=== PATIENT | male | born 1955 | race Asian ===

== ENCOUNTER 2023-11-18 12:56 | Emergency (ER) | payer BC, SELFPAY ==
[2023-11-18] VITALS (15 sets, daily range): BP systolic 102–143; BP diastolic 60–99
--- NOTE | 2023-11-18 13:11 | ED.GENMED ---
History of Present Illness
General
Chief Complaint: Heart Rate Problem
Source: patient
Time Seen by Provider: 11/18/23 13:11
Travel History
Have you had any contact with someone who has COVID-19?: No
Do you have any symptoms of coronavirus? Fever > 100 degrees, chills, cough, shortness of breath, sore throat, loss of taste or smell, muscle aches, or headache?: No
History of Present Illness
History of Present Illness:
68-year-old gentleman brought to the emergency room by ambulance due to rapid heartbeat. Patient has a history of paroxysmal atrial fibrillation. He does take Xarelto and metoprolol. Patient noticed his heart rate was fast a couple days ago when
he has palpitations and checked his heart rate on his Apple Watch. He is checked it several times since then and has seemed to get normal at times and then be rapid at times. This morning he checked it again and it was quite rapid prompting him to
go to an urgent care. Urgent care called 911. Paramedics arrived and noted him to have a very rapid heart rate which they interpreted to be SVT. He was given 2 doses of adenosine 6, 12 mg. His heart rate was slow but that would speed right back
up after a few seconds. Patient denies any fever, chills, cough, shortness of breath.
Phy Exam
Physical Exam
Physical Exam:
General: Awake, Alert, Oriented X3. No acute distress.
Vitals: Tachycardic
Head: Atraumatic
Eyes: Pupils equal, EOMI
Throat: Airway intact, no exudates
Neck: Trachea midline
Lungs: Clear and equal b/l
Heart: Tachycardic regular rate, no murmurs
Abd: Soft, Nontender, No pulsatile mass
Neuro: Nonfocal
Skin: Warm, dry, no rash
Extremities: pulses equal b/l, no edema
Course
Orders/Labs/Results
Orders:
Orders
11/18/23
Electrocardiogram (*1) Stat
Other Reason for Exam: CP
Comment: DONE
11/18/23 13:01
Electrocardiogram (*1) Urgent
Reason for Study: Chest Pain
Cardiac Monitoring- Treatment ONCE
EKG- Treatment ONCE
IV Insert/Care/Rem.- Treatment PRN
O2 Therapy [RESP] Urgent
Titrate/Wean O2 to maintain O2 sat greater than (%): 90
Special Instructions: Maintain sats >/=90%
Pulse Ox/spot Check [RESP] Urgent
Quantity: 1
Special Instructions: ON ROOM AIR
11/18/23 13:02
Diltiazem 125 mg/125 ml Nss [Cardizem] 125 mg in 125 ml .ROUTE .STK-MED
11/18/23 13:03
Diltiazem HCl [Cardizem] 25 mg .ROUTE .STK-MED ONE
11/18/23 13:08
Electrocardiogram (*1) Urgent
Reason for Study: Abdominal Pain
EKG- Treatment ONCE
11/18/23 13:10
Basic Metabolic Panel Urgent
Complete Blood Count/With Diff Urgent
Troponin I Urgent
11/18/23 14:15
Propofol [Diprivan] 20 ml .ROUTE .STK-MED
Abnormal Lab Results
11/18/23
13:10
WBC 4.1 L 10^3/uL
(4.8-10.8)
RBC 4.46 L 10^6/uL
(4.70-6.10)
Hct 38.7 L %
(39.0-52.0)
MPV 11.5 H fL
(7.4-10.4)
Absolute Monos (auto) 0.8 H 10^3/uL
(0.1-0.6)
Monocytes % 19.9 H %
(1.7-9.3)
Chloride 112 H mmol/L
(98-107)
Creatinine 0.5 L mg/dL
(0.7-1.3)
Calcium 7.3 L mg/dl
(8.4-10.2)
11/18/23 13:10
11/18/23 13:10
Vital Signs
Initial and Last Documented VS:
Initial Vital Signs
Pulse Resp
163 15
11/18/23 13:02 11/18/23 13:02
Last Documented Vital Signs
Pulse Resp BP Pulse Ox
76 24 116/67 99
11/18/23 14:54 11/18/23 14:54 11/18/23 14:54 11/18/23 14:54
Procedures
Cardioversion
Indication:: Afib
Synchronized?: Yes
Energy Used: 150 joules
Number of attempts: 1
Successful?: Yes
Complications: None
ASA Risk Score: Class II
Any reaction or bad outcome to prior sedation/anesthesia?: No history of a reaction
Sedation level to be attained: moderate
Chart and allergies reviewed: Yes
Patient reassessed prior to sedation: Yes
Time out completed at (validating right patient & procedure): 14:29
History of difficult intubation: No
Airway free of obstruction: Yes
Patient has a gag reflex: Yes
Patient is able to open mouth: Yes
Patient has no dentures: Yes
Patient has no loose teeth: Yes
Medication administered by Provider during Moderate Sedation: IV Propofol (mg)
Total dose administered: 40
Time drug administered: 14:29
Start Time: 14:29
Stop Time: 14:31
MDM/Problems Addressed
Differential Diagnosis Includes:
SVT, a flutter, A-fib
MDM/Problems Addressed:
Patient arrives with rapid heart rate. He had received 2 doses of adenosine en route. This did not result in christian of sinus rhythm. Given patient's history of A-fib I think this most likely he has atrial flutter with rapid conduction. 20
mg of Cardizem administered with decreased heart rate into the 80s. Flutter waves visible. Patient observed for period of time but maintained A-fib and a flutter. Procedural sedation and synchronized cardioversion performed with christian of
normal sinus rhythm. Patient stable for discharge home. Follow-up with his police or patrol park officer as an outpatient.
Repeat EKG shows normal sinus rhythm with a rate of 80. No ischemic changes. Normal intervals.
*Critical Care Note
Total Time (30-74mins, 75-104mins- exclusive of procedures): Not Applicable
ED Attending Note
-
Portions of this chart may have been created with voice recognition software.� Occasional wrong word or��sound alike� substitutions may have occurred due to the inherent limitations of voice recognition software.
Discharge Plan
Departure
Patient Disposition: Home (Routine Discharge)
Date of Disposition: 11/18/23
Time of Disposition: 15:02
Patient with high blood pressure during this ER visit?: No
Condition: Good
Discharge Problem:
Paroxysmal A-fib
Instructions: Atrial Fibrillation (DC), Procedural Sedation, Adult ED
Referrals:
Jamarcus Martini, [Family Provider] -
Activity Restrictions/Additional Instructions:
Continue to take your current medications. It is important do not miss any doses of Xarelto. Follow-up with your police or patrol park officer.
Interventions
Interventions:
*Risk Screen - Suicide Last Done: 11/18/23 13:16
*General Assessment Last Done: 11/18/23 13:03
*Neglect/Abuse Screening Last Done: 11/18/23 13:16
ED- Fall Risk Assessment Last Done: 11/18/23 15:02
*ED COVID-19 Vaccine History Last Done: 11/18/23 13:15
ED- Cardiac Assessment Last Done: 11/18/23 13:52
ED- Pulmonary Assessment Last Done: 11/18/23 13:10
Discharge Date and Time
Print Language: AUSTRIAN
[2023-11-18 13:17] LABS: % Basophils 0.5 % (0-2); % Lymphocytes 32.5 % (20.5-51.1); % Monocytes 19.9 % (1.7-9.3); % Neutrophils 46.1 % (42.2-75.2); Absolute Lymphocytes 1.3 10^3/uL (1.2-3.4); Absolute Monocytes 0.8 10^3/uL (0.1-0.6); Absolute Neutrophils 1.9 10^3/uL (1.4-6.5); Hematocrit 38.7 % (39.0-52.0); Hemoglobin 13.6 g/dL (13.0-18.0); Mean Corp Hgb Conc. 35.1 g/dL (33.0-37.0); Mean Corpuscular Hgb 30.5 pg (27.0-31.0); Mean Corpuscular Volume 86.8 fL (80.0-94.0); Mean Platelet Volume 11.5 fL (7.4-10.4); Nucleated Red Blood Cells % 0 % (-); Platelet Count 166 10^3/uL (130-400); Red Blood Cell Count 4.46 10^6/uL (4.70-6.10); Red Cell Dist. Width 13.7 % (11.5-14.5); White Blood Cell Count 4.1 10^3/uL (4.8-10.8)
[2023-11-18 13:30] LABS: Blood Urea Nitrogen 15 mg/dl (9-20); Calcium 7.3 mg/dl (8.4-10.2); Carbon Dioxide 24 mmol/L (22-30); Chloride 112 mmol/L (98-107); Estimated Creatinine Clearance 100 ml/min; Glucose 75 mg/dl (70-99); Sodium 140 mmol/L (135-145); eGFR > 60.00
[2023-11-18 13:38] LABS: Troponin I < 0.012 ng/ml
== END 2023-11-18 15:56 | disposition home or self-care (01) ==
LOC: EMR 12:56
PROVIDERS: EMERGENCY PHYSICIAN Emergency Medicine; FAMILY PHYSICIAN Student in an Organized Health Care Education/Training Program
DX: I48.0 Paroxysmal atrial fibrillation (principal); Z79.01 Long term (current) use of anticoagulants; Z79.899 Other long term (current) drug therapy
CPT/HCPCS: 99285; 92960; 99152; 80048; 84484; 85025; 93005